=== PATIENT | male | born 1960 | race Caucasian/White ===

== ENCOUNTER 2016-12-26 20:03 | Emergency (ER) | payer OTHER ==
[~2016-12-26] VITALS: Ht 172.7 cm; Wt 87.1 kg
[~2016-12-26 20:03] MED LIST: KEFLEX 500MG.500 MG PO; NOMEDS *; TALWIN NX PO
--- OUTSIDE RECORDS SUMMARY | 2016-12-26 20:20 | External Medical Summary Rpt ---
Author Author [facility] Organization [facility] Address Unknown Phone Unavailable Care Team Providers Care Alarm Installation Technician Name Role Phone JD (REF) PCP [phone] Encounter [facility] Date(s): 05/08/16 - 05/08/16 [facility] [address] [place] [id number]- [phone] Discharge Disposition: OP Self Care or Home Attending Physician: ASA MILES (REF), ERA Admitting Physician: ASA MILES (REF), ERA Referring Physician: ASA MILES (REF), ERA Reason for Visit CHEST PAIN, UNSPECIFIED Vital Signs Most recent 1 to oldest [Reference Range]: Temperature Temporal artery scanning Source (05/08/16 7:11 AM) Temperature Fahrenheit Mode (05/08/16 7:11 AM) Temperature, 98.5 Deg F Fahrenheit (05/08/16 7:11 AM) [96.8-99.7 Deg F] Clinical 36.9 Deg C Temperature, (05/08/16 7:11 AM) C Heart Rate, 59 bpm Apical *LOW* [60-100 bpm] (05/08/16 7:11 AM) Blood 166/97 mmHg Pressure *HI* [90-140/60-9 (05/08/16 7:11 AM) 0 mmHg] Oxygen 99 % Saturation (05/08/16 7:11 AM) [94-100 %] Oxygen Room air Therapy Mode (05/08/16 7:11 AM) Problem List No data available for this section Allergies, Adverse Reactions, Alerts No data available for this section Medications metoprolol (Metoprolol Tartrate 50 mg oral tablet)1 Tab, Oral, Two Times A Day, Refills: 0 Results No data available for this section Immunizations No data available for this section Procedures No data available for this section Social History No data available for this section Assessment and Plan No data available for this section Hospital Discharge Instructions No data available for this section
--- OUTSIDE RECORDS SUMMARY | 2016-12-26 20:20 | External Medical Summary Rpt ---
Author Author [facility] Organization [facility] Address Unknown Phone Unavailable Care Team Providers Care Abap Developer Name Role Phone JD (REF) PCP [phone] Encounter [facility] Date(s): 05/08/16 - 05/08/16 [facility] [address] [place] [place] [id number]- Discharge Disposition: OP Self Care or Home [...]
[2016-12-26 20:21] LABS: HEMOGLOBIN 15.5 g/dL (14.1-18.0); LYMPH % 49.3 % (10-50)
--- OUTSIDE RECORDS SUMMARY | 2016-12-26 20:23 | External Medical Summary Rpt | CCD ---
Demographics Preferred Language Hungarian Marital Status Unknown Holiness Affiliation Unknown Race Unknown Ethnic Group Unknown Author Author , JENNY ALVARADO Address Unknown Phone Immunization No patient found.
--- OUTSIDE RECORDS SUMMARY | 2016-12-26 20:23 | External Medical Summary Rpt ---
Author Author JENNY Guzman, [employer] Organization [employer] Address Unknown Phone Unavailable
--- OUTSIDE RECORDS SUMMARY | 2016-12-26 20:23 | External Medical Summary Rpt | CCD ---
Author Author [employer] Organization [employer] Address Unknown Phone Unavailable Purpose Continuity of Care Document - through 2016
--- OUTSIDE RECORDS SUMMARY | 2016-12-26 20:23 | External Medical Summary Rpt | CCD ---
Author Author , JENNY ALVARADO Address Unknown Phone [email or web address] Care Team Providers Care Victims Advocate Clerk/Specialist Name Role Phone ULICES BEVERLY DO, Unavailable Unavailable ULICES BEVERLY DO Purpose Continuity of Care Document - 03-14-2013 through 2016 Problems Code Diagnosis DOS Provider Status 940.3 940.3 ACID 03-14-2013 [facility] E849.8 E849.8 03-14-2013 [place] ACCIDENT IN [facility] E924.1 E924.1 03-14-2013 [place] ACCID-[facility] SUBSTANCE Allergies, Adverse Reactions, Alerts Type Allergy to substance Adverse Reaction to Substance Substance Reaction Severity IV DYE Unknown Mild Medications Na ND Rx Da Fi Fi Am Da Di Ph RX Ph St me C No te ll ll ou ys ag ar # ys at rm s nt no ma ic us Or Da si cy ia de te s n re d SO 00 01 0 No DI 40 -0 UM 97 3- Lo 98 20 ng CH 30 14 er LO 9 RI Ac DE ti ve 0. 9% SO DINESH TI ON AD 49 01 0 No AC 28 -0 EL 10 3- Lo 40 20 ng TD 01 14 er AP 0 Ac ti AL ve HY [address] 40 -0 OM 91 3- Lo OR 31 20 ng PH 23 14 er ON 0 E Ac 2 ti MG ve /M L CA RP UJ CT Vital Signs 03-14-2013 14:14 Name Value Interpretat Reference Comment ion Range BP 116 mm[Hg] Diastolic BP Systolic 180 mm[Hg] Heart 69 /min Rate/Pulse O2% 96 % Respiratory 20 /min Rate 03-14-2013 13:55 Name Value Interpretat Reference Comment ion Range BP 116 mm[Hg] Diastolic BP Systolic 180 mm[Hg] Heart 69 /min Rate/Pulse O2% 96 % Respiratory 20 /min Rate Encounters Encounter Start End Date Code Location Performer Type Date Emergency MANAS [place] RUSH GAUTAM (ER) 4 13:33 4 14:14 [facility]
--- OUTSIDE RECORDS SUMMARY | 2016-12-26 20:23 | External Medical Summary Rpt | CCD ---
Demographics Preferred Language Sinhala Marital Status Unknown Evangelical Affiliation Unknown Race Unknown Ethnic Group Unknown Author Author , JENNY ALVARADO Address Unknown Phone Immunization No patient found.
--- OUTSIDE RECORDS SUMMARY | 2016-12-26 20:23 | External Medical Summary Rpt | CCD ---
Author Author , JENNY ALVARADO Address Unknown Phone [email or web address] Care Team Providers Care Gun Repair Clerk Name Role Phone ULICES BEVERLY DO, Unavailable Unavailable ULICES BEVERLY DO Purpose Continuity of Care Document - 03-14-2013 through 2016 Problems Code Diagnosis DOS Provider Status 940.3 940.3 ACID 03-14-2013 [facility] E849.8 E849.8 03-14-2013 [place] ACCIDENT IN [facility] E924.1 E924.1 03-14-2013 [place] ACCID-CAUST [facility] SUBSTANCE Allergies, Adverse Reactions, Alerts Type [...] RUSH GAUTAM (ER) 4 13:33 4 14:14 [facility]
--- NOTE | 2016-12-26 20:26 | Emergency Room Report ---
History of Present Illness Time Seen by 1999 Presenting Problem in Triage Pt arrived:Walked Presenting Problem:C/O SUDDEN PAIN TO ABD PAIN AFTER EATING SALSA. REPORTS VOMITING X1 REPORTS RECENT STENTS. 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 N Clinical Suspician of Infection? N Mental Status: 1 - Regular (Normal Baseline) Sepsis Risk:Low Sepsis Risk Have you (or family members/close friends) recently traveled outside the [place]? N If Yes, where/when: Have you had exposure to infectious disease within the past month? N TB? Other? Specify: Source patient, RN notes reviewed, family, old records Exam Limitations no limitations Comment pt with sudden onset of ant chest pain and epigastric pain after salsa with known hx of cad - pt with radiation of pain to lt upper ext and also had elevated bp Cardiac Chest Pain Chest pain indicative of cardiac No Timing/Duration this evening ALLERGIES Coded Allergies: promethazine (Intermediate, VOMITING 12/26/16) Uncoded Allergies: IV DYE (Mild, 01/02/12) Home Medications Reported Medications Lisinopril 5 MG NG BID #60 Atorvastatin Calcium 40 MG PO DAILY #30 Prasugrel HCl (Effient) 10 MG PO DAILY #30 Aspirin 81 MG PO DAILY #30 History Medical History General CAD? No Angina: No LA: No Hypertension? Yes Hyperlipidemia? No CHF? No DVT? No PE? No COPD? No Asthma? No Anemia? No GERD? Yes Gastric ulcers? No GI Bleed? No Hernia? No Thyroid Problems? No Hypothyroidism? No CVA? No Seizures? No Diabetes? No Renal Insuffiency? No End Stage Renal Disease? No UTI? No Stones? No BPH? No GB Disease: No Nephritic Syndrome? No Asplenia? No Hepatitis? No Sickle Cell Disease? No Arthritis? No Migraines? No Cataracts? No Glaucoma? No MRSA? No HIV? No TB? No Anxiety? No Depression? No Cancer? No More? No Immunization Hx DT/Tetanus 03/14/2013 Surgical Hx Previous Surgery?Y Appendectomy STENTS Social History Smoking Hx Smoker: Never Smoker Tobacco: No Type Cigarettes Are you/the child exposed to second-hand smoke: No Alcohol Alcohol: No Drugs none Review of Systems All Other Systems Reviewed and Negative Constitutional denies fever Eyes denies drainage ENT denies: ear discharge, epistaxis, throat pain. Respiratory denies cough, denies shortness of breath, denies wheezing Cardiovascular denies chest pain, denies palpitations, denies syncope Gastrointestinal denies abdominal pain, denies diarrhea, denies vomiting Genitourinary denies: dysuria, frequency, hesitancy, hematuria. Musculoskeletal denies back pain, denies joint pain, denies joint swelling, denies neck pain Skin denies rash Psychiatric/Neurological denies headache, denies seizure Physical Exam Vital Signs Vital Signs Date Time Temp Pulse Resp B/P Pulse O2 O2 Flow FiO2 Ox Delivery Rate 12/26 2050 66 18 130/80 94 12/26 2004 97.1 62 18 198/107 97 - WBC >12,000 or <4,000 or 10% bands? 2 or more SIRS Criteria Met? B/P:130/80 MAP:137 Creatinine >2.0? UA output<0.5ml/kg/hr for 2 hrs? Platelet count >100,000? Lactate >2.0mmol/1? INR >1.2 or PTT > than 60 sec? Evidence of Organ Dysfunction? Provider documented clinical suspician of infection? N Sepsis Criteria Count: 0 Sepsis Risk: Low Sepsis Risk General Appearance no apparent distress Eye Exam - bilateral eye PERRL, bilateral eye EOMI Ear, Nose, Throat normal ENT inspection Neck supple Respiratory Status No: respiratory distress. Lung Sounds bilateral: lungs clear. Cardiovascular regular rate/rhythm, systolic murmur Peripheral Pulses Pulses normal Yes Gastrointestinal soft, no organomegaly, no pulsatile mass, no guarding, no rebound, tenderness Back no CVA tenderness Extremities normal inspection Strength 4 Upper Ext (L), 4 Upper Ext (R), 4 Lower Ext (L), 4 Lower Ext (R) Neurologic alert, dessert cup machine feeder II-XII nml as tested, no motor/sensory deficits Reflexes Reflexes normal No Mental status normal mood/affect Skin intact Medical Decision Making LABS/Meds/Orders Pt receiving controlled substance in ED? No Results/Orders Laboratory Tests 12/26/162004: Sodium 141, Potassium 3.6, Chloride 103, Carbon Dioxide 27, BUN 15, Creatinine 1.1, Estimated Creat Clear 92, Estimated GFR (MDRD) 69, Glucose 116 H, Calcium 9.1, Total Bilirubin 1.0, AST 38 H, ALT 58, Alkaline Phosphatase 94, Creatine Kinase 388 H, CK-MB (CK-2) Rel Index 1.2, CK and CKMB Interp 4.6 H, Troponin I < 0.02, Total Protein 8.0, Albumin 4.4, Globulin 3.6 H, Albumin/Globulin Ratio 1.2, Amylase 56, Lipase 118, WBC 10.2, RBC 4.90, Hgb 15.5, Hct 44.8, MCV 91.3, RDW 13.3, Plt Count 292, MPV 9.1, Gran % 42.7, Gran # 4.4, Lymphocytes % 49.3, Monocytes % 5.5, Eosinophils % 1.5, Basophils % 1.0, Lymphocytes # 5.0 H, Monocytes # 0.6, Eosinophils # 0.2, Basophils # 0.1, PUBS MCHC 34.6, MCH 31.6 H Current Medication Orders Sig/Costa Start time Last Medication Dose Route Stop Time Status Admin Metoclopramide HCl 0 .STK-MED ONE 12/26 2038 DC .ROUTE Famotidine 0 .STK-MED ONE 12/26 2037 DC IV Sodium Chloride 25 ML .STK-MED ONE 12/26 2036 DC IV Famotidine 20 MG ONCE ONE 12/26 2029 DC 12/26 IV 12/26 Metoclopramide HCl 10 MG ONCE ONE 12/26 2029 DC 12/26 IVP 12/26 Sodium Chloride 10 ML PRN PRN 12/26 2029 AC IV 12/28 2015 Sodium Chloride 8 ML ONCE ONE 12/26 2029 DC 12/26 IV 12/26 Orders Procedure Date/time Status DIET-NOTHING BY MOUTH 12/[address] ABD & PELVIS W/O CONTRAST 12/[address] ABD/PELVIS REQ 12/27 2015 Complete CHEST(2 VIEWS-NOT PORTABLE) 12/27 2015 Active IV SALINE LOCK 12/27 2015 Active PASSENGER SERVICE SUPERVISOR 12/27 2015 Active LIPASE 12/27 2015 Complete CBC WITH AUTO DIFF 12/27 2015 Complete CARDIAC ENZYMES 12/27 2015 Complete CHEM 12 PROFILE 12/27 2015 Complete AMYLASE 12/27 2015 Complete CM/EKG CM/adhesive sprayer Rhythm Sinus Bradycardia EKG non-spec. ST/Twave chgs XRAY/CT/US XRAY/CT/US CT abdomen, pelvis CT interpretation by discussed w/radiologist Time results known: 2127 CT Results abnormal (see report) Progress ED Progress Notes Date 12/26/16 Time 2127 Comment improved Departure Departure Time of Disposition 2125 Disposition DC Home or Self Care(routine) Clinical Impression Primary Impression: Gastritis Qualifiers: Gastritis type: unspecified gastritis Chronicity: acute Gastritis bleeding: without bleeding Qualified Code: K29.00 - Acute gastritis without bleeding Secondary Impressions: Chest pain Qualifiers: Chest pain type: unspecified Qualified Code: R07.9 - Chest pain, unspecified Condition STABLE Referrals ASA MILES (Family) Patient Instructions DI for Gastritis Additional Instructions see pcp for follow up Discharge Counseling Counseled pt/family regarding diagnosis, test results, follow up needs ED Critical Care Critical Care No at 2131
[2016-12-26] MEDS ORDERED: LISINOPRIL5 MG NG (20:33)
[2016-12-26] MEDS ORDERED: ATORVASTATIN CA40 MG PO (20:34)
[2016-12-26] MEDS ORDERED: EFFIENT10 M2 PO (20:34)
[2016-12-26] MEDS ORDERED: ASPIRIN ADULT L81 M2 PO (20:35)
[2016-12-26 20:47] LABS: BUN 15 mg/dL (7-18); GFR (ESTIMATED) 69 ML/MIN (>60)
[2016-12-26 21:48] VITALS: BP 130/80
--- NOTE | 2016-12-27 05:44 | RADIOLOGY REPORT PS360 ---
CT ABD PELVIS W/O CONTRAST CLINICAL INDICATION: Vomiting, diarrhea, abdominal pain ABD PAIN ORDERING PHYSICIAN: Lou Armas MD PATIENT AGE: 56 years COMPARISON: None TECHNIQUE: Axial images obtained with sagittal and coronal reformats. PROCEDURE: Oral Contrast: None IV Contrast: None . FINDINGS: Lung bases are clear. The liver, gallbladder, pancreas, spleen, adrenal glands, kidneys, and ureters have an unremarkable appearance. No obstructing renal or ureteral calculi. Small calcification is present along the roof of the urinary bladder probably due to a phlebolith. No evidence of appendicitis or diverticulitis. No intestinal obstruction or free air. No acute bony anomalies. Mild lumbar and lower thoracic spondylosis. Tiny umbilical hernia containing fat IMPRESSION: No acute intra-abdominal or pelvic pathology. Nonacute findings as described above
--- NOTE | 2016-12-27 05:51 | RADIOLOGY REPORT PS360 ---
CHEST(2 VIEWS-NOT PORTABLE) HISTORY: Upper abdominal/lower chest pain C/O ABD PAIN ORDERING PHYSICIAN: Lou Armas MD PATIENT AGE: 56 years COMPARISON: None available FINDINGS: The cardiomediastinal silhouette and pulmonary vascularity are within normal limits. The lungs are clear without infiltrates, suspicious nodules, or pleural effusions. No acute bony abnormalities. IMPRESSION: Negative chest, no acute finding
== END 2016-12-26 21:54 | disposition home or self-care (01) ==
LOC: ER 20:03
PROVIDERS: Emergency Medicine
DX: K29.00 Acute gastritis without bleeding (principal); R07.9 Chest pain, unspecified; I10 Essential (primary) hypertension; K21.9 Gastro-esophageal reflux disease without esophagitis; Z79.899 Other long term (current) drug therapy